=== PATIENT | female | born 2000 | race African-American/Black ===

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

== ENCOUNTER → 2025-01-09 | Outpatient (CLI) | payer BC ==
[2025-01-09 08:29] LABS: CREATININE 0.7 mg/dL (0.6-1.0)
[2025-01-09 08:29] LABS: CLARITY URINE CLEAR (CLEAR); COLOR URINE STRAW (YELLOW); SPECIFIC GRAVITY URINE 1.004 (1.005-1.030)
[2025-01-09 08:30] LABS: TRIGLYCERIDE 92 mg/dL (0-150); UREA NITROGEN BLOOD 14 mg/dL (9-23)
[2025-01-09 08:30] LABS: GLUCOSE URINE NEGATIVE (NEGATIVE); KETONES URINE NEGATIVE (NEGATIVE); LEUKOCYTE ESTERASE URINE NEGATIVE (NEGATIVE); NITRITE URINE NEGATIVE (NEGATIVE); OCCULT BLOOD URINE NEGATIVE (NEGATIVE); PH URINE 6.5 (4.5-8.0); PROTEIN URINE NEGATIVE (NEGATIVE); UROBILINOGEN URINE 0.2 E.U./dL (0.2-1.0)
[2025-01-09 08:31] LABS: ASPARTATE AMINOTRANSFERASE 15 IU/L (<34); LDL CHOLESTEROL 65 mg/dL (5-100)
[2025-01-09 08:32] LABS: BILIRUBIN TOTAL 0.4 mg/dL (0.1-1.0); PROTEIN TOTAL 7.5 g/dL (6.0-8.3)
[2025-01-09 08:34] LABS: T4 FREE 0.94 ng/dL (0.89-1.76)
[2025-01-09 08:57] LABS: VITAMIN B12 SERUM 501 pg/mL (211-911)
[2025-01-09 08:59] LABS: FOLIC ACID (FOLATE) SERUM 12.02 ng/mL (>5.38)
[2025-01-09 14:00] LABS: BASOPHILS % 0.7 % (0.0-2.0); EOSINOPHILS % 4.5 % (0.0-5.0); HEMATOCRIT. 34.4 % (36.0-48.0); HEMOGLOBIN. 11.8 g/dL (12.0-16.0); LYMPHOCYTES % 36.9 % (20.0-50.0); MEAN PLATELET VOLUME 9.7 fl (7.4-10.4); MONOCYTES % 9.1 % (2.0-8.0); NEUTROPHILS % 48.8 % (40.0-76.0); PLATELET 392 x1000/uL (130-400); RED BLOOD CELL COUNT 4.52 mill/uL (4.2-5.4); RED CELL DISTRIBUTION WIDTH 15.3 % (11.6-14.6)
[2025-01-10 08:11] LABS: FOLICLE STIMULATING HORMONE 1.3 mIU/mL (.); VITAMIN D 25-OH 27.6 ng/mL (30.0-100.0)
[2025-01-11 06:07] LABS: CHLAMYDIA TRACHOMATIS NAA Negative (Negative); NEISSERIA GONORRHOEAE NAA Negative (Negative)
== END | disposition home or self-care (01) ==
LOC: LAB 07:31
PROVIDERS: ATTEND Internal Medicine Geriatric Medicine
DX: Z00.01 Encounter for general adult medical examination with abnormal findings (principal)
CPT/HCPCS: 36415; 80053; 80061; 81003; 82306; 82607; 82746; 83001; 83036; 83540; 83550; 84436; 84439; 84443; 85025; 86592; 87491; 87591